=== PATIENT | male | born 1975 | race Caucasian/White ===

== ENCOUNTER 2017-07-28 12:14 | Outpatient (CLI) | payer OTHER ==
--- NOTE | 2017-07-28 23:35 | XRAY Report ---
EXAM: 1. Right Elbow Radiography 2. Left Elbow Radiography EXAM DATE: 07/28/2017 12:41 PM. CLINICAL HISTORY: Bilateral elbow pain COMPARISON: None. TECHNIQUE: 3 views each elbow. FINDINGS: Right: Bones: Normal. No fractures or bone lesions. Joints: Normal. No effusion. No subluxation. Soft Tissues: Normal. No soft tissue swelling. Left: Bones: Normal. No fractures or bone lesions. Joints: Normal. No effusion. No subluxation. Soft Tissues: Normal. No soft tissue swelling. IMPRESSION: No significant osseous abnormality. [facility] Referring Provider Line: [phone] SITE ID: [id number]
== END 2017-07-28 12:15 | disposition home or self-care (01) ==
LOC: DI 12:14
PROVIDERS: ATTEND Physician Assistant
DX: M25.521 Pain in right elbow (principal); M25.522 Pain in left elbow

== ENCOUNTER 2017-09-17 16:15 | Emergency (ER) | payer OTHER ==
--- NOTE | 2017-09-17 16:52 | XRAY Preliminary Report ---
Exam: XR FINGER(S) RT IMPRESSION: No evidence of fracture or dislocation. [facility] SITE ID: [id number]
--- NOTE | 2017-09-17 16:55 | XRAY Report ---
EXAM: LEFT FOURTH Digit Radiography EXAM DATE: 09/17/2017 04:36 PM. CLINICAL HISTORY: Crush injury. COMPARISON: None. TECHNIQUE: 3 views. FINDINGS: Bones: No fracture or focal bony lesion. Joints: No evidence of dislocation. Soft Tissues: No unexpected soft tissue findings. IMPRESSION: No evidence of fracture or dislocation. [facility] Referring Provider Line: [phone] SITE ID: [id number]
[2017-09-17] MEDS ORDERED: TETANUS/DIPHTHERIA/PERTUSSIS 0.5 ML SYRINGE IM ONE ×2 (18:04→18:21)
[2017-09-17] MEDS ORDERED: LIDOCAINE 2% 10 ML MDV ONE (18:18)
--- NOTE | 2017-09-17 19:09 | ED Physician Documentation ---
History of Present Illness - Stated complaint Stated Complaint: R FINGER LAC - Chief complaint Chief Complaint: Ext Problem - History obtained from History obtained from: Patient (pt here for evaluation of right ring finger laceration. states that he smashed his finger moving an object,) Review of Systems Skin: reports: Laceration (s) (right ring finger) Musculoskeletal: denies: Neck pain, Joint pain, Joint swelling PD PAST MEDICAL HISTORY - Past Medical History Neuro: Headache/migraine GI: GERD Psych: ADD/ADHD - Past Surgical History Past Surgical History: Yes - Present Medications Home Medications: Ambulatory Orders Medication Instructions Recorded Confirmed cloNIDine 0.2 MG PATCH 1 each TOP Q7D 02/27/13 09/17/17 [[id number]] cloNIDine 0.3 MG PATCH 1 each TOP Q7D 02/27/13 09/17/17 [[id number]] Ibuprofen [Motrin] 600 mg PO Q6H PRN #30 tab 08/30/13 09/17/17 SUMAtriptan [Imitrex] 50 mg PO ONCE #10 tablet 06/24/14 09/17/17 - Allergies Allergies/Adverse Reactions: Allergies Allergy/AdvReac Type Severity Reaction Status Date / Time No Known Drug Allergies Allergy Verified 02/27/13 12:10 - Social History Does the pt smoke?: No Smoking Status: Never smoker Does the pt drink ETOH?: No Does the pt have substance abuse?: No - Immunizations Immunizations are current?: Yes - POLST Patient has POLST: No PD ED PE NORMAL - Vitals Vital signs reviewed: Yes - General General: Alert and oriented X 3, No acute distress - Derm Derm: Other (laceration to the pad of his right ring finger. ) - Extremities Extremities: No: No deformity, No tenderness to palpate, No edema - Neuro Neuro: Other (sensation intact to touch to the right ring finger. ) Results - Vitals Vitals: Vital Signs - 24 hr 09/17/17 16:21 Temperature 36.7 C Heart Rate 79 Respiratory 17 Rate Blood Pressure 127/77 O2 Saturation 99 Oxygen O2 Source Room air - Rads (name of study) finger Radiology: Final report received Procedures - Laceration (location) ring finger Wound type: Linear Neurovascular status: Sensory intact, Vascular intact Anesthesia: Lidocaine 1% Wound Preparation: Irrigated copiously NS Skin layer closure: Nylon, Size #-0 - enter number (4), Sutures - enter # (4) Complexity: Simple PD MEDICAL DECISION MAKING - ED course Complexity details: d/w patient ED course: no fracture, lac repaired as above. pt given care instructions and return precautions. Departure - Departure Disposition: 01 Home, Self Care Clinical Impression: Laceration Condition: Good Instructions: ED Laceration Hand Follow-Up: Ramonita Murray PA-C [Primary Care Provider] - Comments: Keep the stitches clean and dry. Have them removed in 10 days. Return to the ER for any new or worsening symptoms.
[2017-09-17 19:36] VITALS: BP 118/78
== END 2017-09-17 19:34 | disposition home or self-care (01) ==
LOC: ED 16:15
DX: S61.214A Laceration without foreign body of right ring finger without damage to nail, initial encounter (principal); W23.1XXA Caught, crushed, jammed, or pinched between stationary objects, initial encounter; K21.9 Gastro-esophageal reflux disease without esophagitis; Z23 Encounter for immunization
CPT/HCPCS: 12001; 73140; 90471; 99282; 99283

== ENCOUNTER 2018-08-03 11:06 | Emergency (ER) | payer OTHER, MEDICAID ==
[2018-08-03 11:16] VITALS: BP 137/97
--- NOTE | 2018-08-03 12:07 | ED Physician Documentation ---
PD HPI HEAD INJURY - Stated complaint Stated Complaint: HEAD LAC - Chief complaint Chief Complaint: Laceration - History obtained from History obtained from: Patient, Family () - History of Present Illness Mechanism of head injury: Laceration (He was getting into his camper van and the shocks on the overhead door do not work and the rear came down and cut him on the top of the scalp. He is up-to-date on tetanus. No headache or loss of consciousness, no vomiting. He is not on blood thinners.) Timing - onset: Today (10:15 AM) Review of Systems Skin: denies: Rash, Lesions Musculoskeletal: denies: Neck pain, Back pain, Pain with weight bearing Neurologic: denies: Headache, Head injury, LOC PD PAST MEDICAL HISTORY - Past Medical History GI: GERD Psych: ADD/ADHD - Past Surgical History Past Surgical History: Yes - Present Medications Home Medications: Ambulatory Orders Medication Instructions Recorded Confirmed cloNIDine 0.2 MG PATCH 1 each TOP Q7D 02/27/13 09/17/17 [[id number]] cloNIDine 0.3 MG PATCH 1 each TOP Q7D 02/27/13 09/17/17 [[id number]] Ibuprofen [Motrin] 600 mg PO Q6H PRN #30 tab 08/30/13 09/17/17 SUMAtriptan [Imitrex] 50 mg PO ONCE #10 tablet 06/24/14 09/17/17 Colestipol HCl [Colestid] 2 gm PO 08/03/18 - Allergies Allergies/Adverse Reactions: Allergies Allergy/AdvReac Type Severity Reaction Status Date / Time No Known Drug Allergies Allergy Verified 08/03/18 11:16 - Social History Does the pt smoke?: No Smoking Status: Never smoker Does the pt drink ETOH?: No Does the pt have substance abuse?: No - Immunizations Immunizations are current?: Yes - POLST Patient has POLST: No PD ED PE NORMAL - Vitals Vital signs reviewed: Yes - General General: Alert and oriented X 3, No acute distress - HEENT HEENT: PERRL, EOMI, Other (On the vertex of the scalp there is a 3 cm laceration, it is quite shallow and basically a flap with the intact part of the flap that is tacking it down on the posterior surface. 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 Eye Opening: Spontaneous Motor: Obeys Commands Verbal: Oriented GCS Score: 15 - Psych Psych: Normal mood, Normal affect Results - Vitals Vitals: Vital Signs - 24 hr 08/03/18 11:14 Temperature 36.5 C Heart Rate 71 Respiratory 18 Rate Blood Pressure 137/97 H O2 Saturation 99 Oxygen O2 Source Room air Procedures - Laceration (location) Scalp Length in cm: 3 Wound type: Curved, Superficial, Other (He has male pattern baldness and was mostly bald in the area of the actual lacerations that did not require shaving or wound care other than irrigation.) Wound Preparation: Irrigated copiously NS Skin layer closure: Dermabond, Steri strips Other: Tetanus UTD Complexity: Simple Departure - Departure Disposition: 01 Home, Self Care Clinical Impression: Scalp laceration Qualifiers: Encounter type: initial encounter Qualified Code(s): S01.01XA - Laceration without foreign body of scalp, initial encounter Condition: Good Record reviewed to determine appropriate education?: Yes Instructions: ED Laceration Ext Skin Glue Comments: Your blood pressure was elevated today on check into the emergency department. This does not mean that you have hypertension, it is a common phenomenon to come to the emergency department and have elevated blood pressure. I recommend that you see your primary care physician within the week to have it rechecked when you are feeling better.
== END 2018-08-03 12:10 | disposition home or self-care (01) ==
LOC: ED 11:06
DX: S01.01XA Laceration without foreign body of scalp, initial encounter (principal); W22.8XXA Striking against or struck by other objects, initial encounter; V58.4XXA Person boarding or alighting a pick-up truck or van injured in noncollision transport accident, initial encounter
CPT/HCPCS: 12002; 99282; 99283

== ENCOUNTER 2018-11-29 10:15 | Outpatient (CLI) | payer OTHER, MEDICAID ==
[2018-11-29 10:46] LABS: BASOPHILS % (AUTO) 0.5 %; EOSINOPHILS # (AUTO) 0.1 10^3/uL (0.0-0.7); EOSINOPHILS % (AUTO) 0.9 %; LYMPHOCYTES # (AUTO) 2.8 10^3/uL (1.5-3.5); LYMPHOCYTES % (AUTO) 44.8 %; MEAN CORPUSCULAR HEMOGLOBIN 31.3 pg (27.0-31.0); MEAN CORPUSCULAR HGB CONC 35.2 g/dL (32.0-36.0); MEAN CORPUSCULAR VOLUME 89.1 fL (80.0-94.0); MEAN PLATELET VOLUME 6.9 fL (7.4-11.4); MONOCYTES # (AUTO) 0.6 10^3/uL (0.0-1.0); MONOCYTES % (AUTO) 9.1 %; NEUTROPHILS # (AUTO) 2.8 10^3/uL (1.5-6.6); NEUTROPHILS % (AUTO) 44.7 %; PLT - PLATELET COUNT 204 10^3/uL (130-450); RED BLOOD COUNT 5.11 10^6/uL (4.70-6.10); RED CELL DISTRIBUTION WIDTH 13.8 % (12.0-15.0); WHITE BLOOD COUNT 6.3 x10^3/uL (4.8-10.8)
[2018-11-29 10:50] LABS: CALCIUM 9.5 mg/dL (8.5-10.3)
[2018-11-29 11:25] LABS: HB2 TOTAL 17.7 g/dL; HEMOGLOBIN A1C 0.69 g/dL; HEMOGLOBIN A1C % 5.7 % (4.6-6.2)
== END 2018-11-29 10:16 | disposition home or self-care (01) ==
LOC: LAB 10:15
PROVIDERS: ATTEND Physician Assistant Medical
DX: R19.7 Diarrhea, unspecified (principal); R73.03 Prediabetes; F95.2 Tourette's disorder
CPT/HCPCS: 36415; 80048; 83036; 85025

== ENCOUNTER 2019-09-04 09:00 | Outpatient (CLI) | payer OTHER, MEDICAID ==
[2019-09-04 09:29] LABS: CHOL/HDL RATIO 4.7 (<5.0); CHOLESTEROL 145 mg/dL; HDL CHOLESTEROL 31 mg/dL; LDL CHOLESTEROL,CALCULATED 73 mg/dL; LDL/HDL RATIO 2.4 (<3.6); VLDL CHOLESTEROL 41 mg/dL
== END 2019-09-04 09:01 | disposition home or self-care (01) ==
LOC: LAB 09:00
PROVIDERS: ATTEND Physician Assistant Medical
DX: R73.03 Prediabetes (principal)
CPT/HCPCS: 36415; 80061; 83721

== ENCOUNTER 2020-01-09 09:36 | Outpatient (CLI) | payer OTHER, MEDICAID ==
[2020-01-09 10:01] LABS: BASOPHILS % (AUTO) 0.3 %; EOSINOPHILS # (AUTO) 0.1 10^3/uL (0.0-0.7); LYMPHOCYTES # (AUTO) 2.8 10^3/uL (1.5-3.5); MEAN CORPUSCULAR HEMOGLOBIN 31.6 pg (27.0-31.0); MEAN CORPUSCULAR HGB CONC 34.8 g/dL (32.0-36.0); MEAN CORPUSCULAR VOLUME 90.7 fL (80.0-94.0); MEAN PLATELET VOLUME 8.7 fL (7.4-11.4); MONOCYTES # (AUTO) 0.5 10^3/uL (0.0-1.0); MONOCYTES % (AUTO) 8.3 %; NEUTROPHILS # (AUTO) 2.8 10^3/uL (1.5-6.6); NEUTROPHILS % (AUTO) 45.1 %; PLT - PLATELET COUNT 198 10^3/uL (130-450); RED BLOOD COUNT 5.07 10^6/uL (4.70-6.10); RED CELL DISTRIBUTION WIDTH 12.8 % (12.0-15.0); WHITE BLOOD COUNT 6.1 x10^3/uL (4.8-10.8)
[2020-01-09 10:13] LABS: ALBUMIN 4.8 g/dL (3.2-5.5); ALBUMIN/GLOBULIN RATIO 1.5 (1.0-2.2); BILIRUBIN,TOTAL 1.5 mg/dL (0.2-1.0); CALCIUM 9.3 mg/dL (8.5-10.3); TOTAL PROTEIN 8.1 g/dL (6.7-8.2)
[2020-01-09 10:24] LABS: HB2 TOTAL 16.5 g/dL; HEMOGLOBIN A1C 0.64 g/dL; HEMOGLOBIN A1C % 5.7 % (4.6-6.2)
== END 2020-01-09 09:37 | disposition home or self-care (01) ==
LOC: LAB 09:36
PROVIDERS: ATTEND Physician Assistant Medical
DX: R73.03 Prediabetes (principal); I10 Essential (primary) hypertension
CPT/HCPCS: 36415; 80053; 83036; 85025

== ENCOUNTER 2020-09-02 10:17 | Outpatient (CLI) | payer OTHER, MEDICAID ==
[2020-09-02 10:44] LABS: BASOPHILS % (AUTO) 0.4 %; EOSINOPHILS # (AUTO) 0.1 10^3/uL (0.0-0.7); EOSINOPHILS % (AUTO) 0.7 %; HGB - HEMOGLOBIN 16.4 g/dL (14.0-18.0); LYMPHOCYTES # (AUTO) 2.8 10^3/uL (1.5-3.5); LYMPHOCYTES % (AUTO) 41.3 %; MEAN CORPUSCULAR HEMOGLOBIN 31.4 pg (27.0-31.0); MEAN CORPUSCULAR HGB CONC 35.1 g/dL (32.0-36.0); MEAN CORPUSCULAR VOLUME 89.5 fL (80.0-94.0); MEAN PLATELET VOLUME 8.9 fL (7.4-11.4); MONOCYTES # (AUTO) 0.5 10^3/uL (0.0-1.0); MONOCYTES % (AUTO) 7.6 %; NEUTROPHILS # (AUTO) 3.3 10^3/uL (1.5-6.6); NEUTROPHILS % (AUTO) 49.4 %; PLT - PLATELET COUNT 194 10^3/uL (130-450); RED BLOOD COUNT 5.22 10^6/uL (4.70-6.10); RED CELL DISTRIBUTION WIDTH 12.5 % (12.0-15.0); WHITE BLOOD COUNT 6.7 x10^3/uL (4.8-10.8)
[2020-09-02 10:57] LABS: ALBUMIN 4.5 g/dL (3.2-5.5); ALBUMIN/GLOBULIN RATIO 1.3 (1.0-2.2); ALKALINE PHOSPHATASE 50 IU/L (42-121); ALT ALANINE AMINOTRANSFERASE 20 IU/L (10-60); AST ASPARTATE AMINOTRANSFERASE 21 IU/L (10-42); BUN - BLOOD UREA NITROGEN 11 mg/dL (6-20); CALCIUM 9.1 mg/dL (8.5-10.3); CARBON DIOXIDE - CO2 27 mmol/L (21-32); CHLORIDE 101 mmol/L (101-111); CHOL/HDL RATIO 5.1 (<5.0); CHOLESTEROL 153 mg/dL; GLUCOSE 109 mg/dL (70-100); HDL CHOLESTEROL 30 mg/dL; LDL CHOLESTEROL,CALCULATED 67 mg/dL; LDL/HDL RATIO 2.2 (<3.6); SODIUM 137 mmol/L (135-145); VLDL CHOLESTEROL 56 mg/dL
[2020-09-02 12:38] LABS: HEMOGLOBIN A1c% 5.7 % (4.27-6.07)
== END 2020-09-02 10:18 | disposition home or self-care (01) ==
LOC: LAB 10:17
PROVIDERS: ATTEND Family Medicine
DX: I10 Essential (primary) hypertension (principal); R73.03 Prediabetes
CPT/HCPCS: 36415; 80053; 80061; 83036; 83721; 85025

== ENCOUNTER 2020-10-22 06:55 | Outpatient (CLI) | payer OTHER, MEDICAID | END 2020-10-22 06:56 | disposition home or self-care (01) | LOC: LAB 06:55 | PROVIDERS: ATTEND Nurse Practitioner Family | DX: N52.9 Male erectile dysfunction, unspecified (principal) | CPT/HCPCS: 81599; 84402; 84403 ==

== ENCOUNTER 2021-11-01 08:09 | Outpatient (CLI) | payer BC, MEDICAID ==
[2021-11-01 12:00] LABS: BASOPHILS % (AUTO) 0.2 %; EOSINOPHILS # (AUTO) 0.1 10^3/uL (0.0-0.7); EOSINOPHILS % (AUTO) 0.8 %; HCT - HEMATOCRIT 47.2 % (42.0-52.0); HGB - HEMOGLOBIN 16.4 g/dL (14.0-18.0); LYMPHOCYTES % (AUTO) 35.7 %; MEAN CORPUSCULAR HEMOGLOBIN 31.2 pg (27.0-31.0); MEAN CORPUSCULAR HGB CONC 34.7 g/dL (32.0-36.0); MEAN CORPUSCULAR VOLUME 89.7 fL (80.0-94.0); MEAN PLATELET VOLUME 9.3 fL (7.4-11.4); MONOCYTES # (AUTO) 0.7 10^3/uL (0.0-1.0); MONOCYTES % (AUTO) 8.1 %; NEUTROPHILS # (AUTO) 4.5 10^3/uL (1.5-6.6); NEUTROPHILS % (AUTO) 54.8 %; PLT - PLATELET COUNT 189 10^3/uL (130-450); RED BLOOD COUNT 5.26 10^6/uL (4.70-6.10); RED CELL DISTRIBUTION WIDTH 12.5 % (12.0-15.0); WHITE BLOOD COUNT 8.3 x10^3/uL (4.8-10.8)
[2021-11-01 12:19] LABS: ALBUMIN 4.7 g/dL (3.2-5.5); ALBUMIN/GLOBULIN RATIO 1.4 (1.0-2.2); ALKALINE PHOSPHATASE 46 IU/L (42-121); ALT ALANINE AMINOTRANSFERASE 31 IU/L (10-60); AST ASPARTATE AMINOTRANSFERASE 30 IU/L (10-42); BILIRUBIN,TOTAL 0.9 mg/dL (0.2-1.0); BUN - BLOOD UREA NITROGEN 15 mg/dL (6-20); CALCIUM 9.2 mg/dL (8.5-10.3); CARBON DIOXIDE - CO2 30 mmol/L (21-32); CHLORIDE 98 mmol/L (101-111); CHOL/HDL RATIO 6.2 (<5.0); CHOLESTEROL 173 mg/dL; CREATININE 1.2 mg/dL (0.6-1.2); GFR - MDRD 65 (>89); GLUCOSE 107 mg/dL (70-100); HDL CHOLESTEROL 28 mg/dL; LDL CHOLESTEROL,CALCULATED 68 mg/dL; LDL/HDL RATIO 2.4 (<3.6); POTASSIUM 4.4 mmol/L (3.5-5.0); SODIUM 135 mmol/L (135-145); TRIGLYCERIDES 383 mg/dL; VLDL CHOLESTEROL 77 mg/dL
[2021-11-01 12:27] LABS: THYROID STIMULATING HORMONE 5.59 uIU/mL (0.34-5.60)
== END 2021-11-01 08:10 | disposition home or self-care (01) ==
LOC: LAB.N 08:09
PROVIDERS: ATTEND Physician Assistant
DX: I10 Essential (primary) hypertension (principal); Z13.220 Encounter for screening for lipoid disorders; Z12.5 Encounter for screening for malignant neoplasm of prostate; Z13.29 Encounter for screening for other suspected endocrine disorder
CPT/HCPCS: 36415; 80053; 80061; 83721; 84153; 84443; 85025

== ENCOUNTER 2022-11-17 09:55 | Outpatient (CLI) | payer BC, MEDICAID ==
[2022-11-17 10:14] LABS: BASOPHILS % (AUTO) 0.4 %; EOSINOPHILS # (AUTO) 0.1 10^3/uL (0.0-0.7); HCT - HEMATOCRIT 46.4 % (42.0-52.0); HGB - HEMOGLOBIN 16.1 g/dL (14.0-18.0); LYMPHOCYTES # (AUTO) 3.2 10^3/uL (1.5-3.5); LYMPHOCYTES % (AUTO) 40.9 %; MEAN CORPUSCULAR HEMOGLOBIN 31.1 pg (27.0-31.0); MEAN CORPUSCULAR HGB CONC 34.7 g/dL (32.0-36.0); MEAN CORPUSCULAR VOLUME 89.6 fL (80.0-94.0); MEAN PLATELET VOLUME 8.5 fL (7.4-11.4); MONOCYTES # (AUTO) 0.7 10^3/uL (0.0-1.0); MONOCYTES % (AUTO) 8.8 %; NEUTROPHILS # (AUTO) 3.8 10^3/uL (1.5-6.6); NEUTROPHILS % (AUTO) 48.1 %; PLT - PLATELET COUNT 185 10^3/uL (130-450); RED BLOOD COUNT 5.18 10^6/uL (4.70-6.10); RED CELL DISTRIBUTION WIDTH 12.4 % (12.0-15.0); WHITE BLOOD COUNT 7.9 x10^3/uL (4.8-10.8)
[2022-11-17 10:31] LABS: ALBUMIN 4.6 g/dL (3.2-5.5); ALBUMIN/GLOBULIN RATIO 1.3 (1.0-2.2); ALKALINE PHOSPHATASE 45 IU/L (42-121); ALT ALANINE AMINOTRANSFERASE 28 IU/L (10-60); AST ASPARTATE AMINOTRANSFERASE 29 IU/L (10-42); BILIRUBIN,TOTAL 1.6 mg/dL (0.2-1.0); BUN - BLOOD UREA NITROGEN 16 mg/dL (6-20); CALCIUM 9.4 mg/dL (8.5-10.3); CARBON DIOXIDE - CO2 29 mmol/L (21-32); CHLORIDE 99 mmol/L (101-111); CHOL/HDL RATIO 6.1 (<5.0); CHOLESTEROL 159 mg/dL; GFR - MDRD 80 (>89); GLUCOSE 107 mg/dL (70-100); HDL CHOLESTEROL 26 mg/dL; LDL CHOLESTEROL,CALCULATED 89 mg/dL; LDL/HDL RATIO 3.4 (<3.6); POTASSIUM 4.3 mmol/L (3.5-5.0); SODIUM 136 mmol/L (135-145); TOTAL PROTEIN 8.1 g/dL (6.7-8.2); TRIGLYCERIDES 220 mg/dL; VLDL CHOLESTEROL 44 mg/dL
[2022-11-17 20:32] LABS: ESTIMATED AVERAGE GLUCOSE 123 mg/dL (70-100); HEMOGLOBIN A1c% 5.9 % (4.27-6.07)
== END 2022-11-17 09:56 | disposition home or self-care (01) ==
LOC: LAB 09:55
PROVIDERS: ATTEND Physician Assistant
DX: I10 Essential (primary) hypertension (principal); E78.1 Pure hyperglyceridemia; R73.01 Impaired fasting glucose
CPT/HCPCS: 36415; 80053; 80061; 83036; 83721; 85025

== ENCOUNTER 2023-12-17 09:52 | Outpatient (CLI) | payer BC, MEDICAID ==
[2023-12-17 10:20] LABS: BASOPHILS % (AUTO) 0.4 %; EOSINOPHILS # (AUTO) 0.1 10^3/uL (0.0-0.7); EOSINOPHILS % (AUTO) 1.9 %; HGB - HEMOGLOBIN 15.5 g/dL (14.0-18.0); LYMPHOCYTES # (AUTO) 2.5 10^3/uL (1.5-3.5); LYMPHOCYTES % (AUTO) 45.4 %; MEAN CORPUSCULAR HEMOGLOBIN 31.1 pg (27.0-31.0); MEAN CORPUSCULAR HGB CONC 34.4 g/dL (32.0-36.0); MEAN CORPUSCULAR VOLUME 90.4 fL (80.0-94.0); MEAN PLATELET VOLUME 8.9 fL (7.4-11.4); MONOCYTES # (AUTO) 0.5 10^3/uL (0.0-1.0); MONOCYTES % (AUTO) 9.8 %; NEUTROPHILS # (AUTO) 2.3 10^3/uL (1.5-6.6); NEUTROPHILS % (AUTO) 41.8 %; PLT - PLATELET COUNT 165 10^3/uL (130-450); RED BLOOD COUNT 4.98 10^6/uL (4.70-6.10); RED CELL DISTRIBUTION WIDTH 12.7 % (12.0-15.0); WHITE BLOOD COUNT 5.4 x10^3/uL (4.8-10.8)
[2023-12-17 10:28] LABS: ALBUMIN 4.4 g/dL (3.2-5.5); ALBUMIN/GLOBULIN RATIO 1.4 (1.0-2.2); ALKALINE PHOSPHATASE 45 IU/L (42-121); ALT ALANINE AMINOTRANSFERASE 34 IU/L (10-60); AST ASPARTATE AMINOTRANSFERASE 31 IU/L (10-42); BILIRUBIN,TOTAL 0.9 mg/dL (0.2-1.0); BUN - BLOOD UREA NITROGEN 13 mg/dL (6-20); CALCIUM 9.5 mg/dL (8.5-10.3); CARBON DIOXIDE - CO2 30 mmol/L (21-32); CHLORIDE 101 mmol/L (101-111); CHOLESTEROL 134 mg/dL; CREATININE 1.1 mg/dL (0.6-1.3); GFR - MDRD 71 (>89); GLUCOSE 119 mg/dL (74-104); HDL CHOLESTEROL 27 mg/dL; LDL CHOLESTEROL,CALCULATED 54 mg/dL; SODIUM 136 mmol/L (135-145); TOTAL PROTEIN 7.5 g/dL (6.4-8.9); TRIGLYCERIDES 264 mg/dL (48-352); VLDL CHOLESTEROL 53 mg/dL
[2023-12-17 10:41] LABS: THYROID STIMULATING HORMONE 5.28 uIU/mL (0.34-5.60)
[2023-12-18 22:09] LABS: ESTIMATED AVERAGE GLUCOSE 126 mg/dL (70-100)
== END 2023-12-17 09:53 | disposition home or self-care (01) ==
LOC: LAB 09:52
PROVIDERS: ATTEND Physician Assistant
DX: I10 Essential (primary) hypertension (principal); E78.1 Pure hyperglyceridemia; Z12.5 Encounter for screening for malignant neoplasm of prostate; Z13.29 Encounter for screening for other suspected endocrine disorder
CPT/HCPCS: 36415; 80053; 80061; 83036; 83721; 84153; 84443; 85025

== ENCOUNTER 2024-06-14 11:22 | Outpatient (CLI) | payer OTHER, MEDICAID ==
[2024-06-14 12:03] LABS: BUN - BLOOD UREA NITROGEN 15 mg/dL (6-20); CALCIUM 9.5 mg/dL (8.5-10.3); CARBON DIOXIDE - CO2 32 mmol/L (21-32); CHLORIDE 101 mmol/L (101-111); CHOL/HDL RATIO 4.7 (<5.0); CHOLESTEROL 146 mg/dL; CREATININE 1.1 mg/dL (0.6-1.3); GFR - MDRD 71 (>89); GLUCOSE 109 mg/dL (74-104); HDL CHOLESTEROL 31 mg/dL; LDL CHOLESTEROL,CALCULATED 51 mg/dL; LDL/HDL RATIO 1.6 (<3.6); POTASSIUM 4.6 mmol/L (3.5-4.5); SODIUM 136 mmol/L (135-145); TRIGLYCERIDES 322 mg/dL; VLDL CHOLESTEROL 64 mg/dL
[2024-06-14 13:27] LABS: ESTIMATED AVERAGE GLUCOSE 131 mg/dL (70-100); HEMOGLOBIN A1c% 6.2 % (4.27-6.07)
== END 2024-06-14 11:23 | disposition home or self-care (01) ==
LOC: LAB 11:22
PROVIDERS: ATTEND Physician Assistant
DX: E78.1 Pure hyperglyceridemia (principal); R73.01 Impaired fasting glucose
CPT/HCPCS: 36415; 80048; 80061; 83036; 83721